=== PATIENT | male | born 1960 | race Caucasian/White ===

== ENCOUNTER 2020-02-26 15:10 | Emergency (ER) | payer OTHER ==
[~2020-02-26] VITALS: Ht 180.3 cm; Wt 102.1 kg
[2020-02-26 15:50] VITALS: BP 130/85
--- NOTE | 2020-02-26 16:11 | NUR ---
C/O FEVER, CHILLS, BODY ACHES X LAST NIGHT. PT AFEBRILE UPON TRIAGE. STATES PAIN 8/10 TO GENERALIZED BODY. PT IN TENT. NO SIGNS OF RESP DISTRESS. RR EVEN AND UNLABORED. VS STABLE. PT AMBULATORY PMH- DENIES
[2020-02-26 16:33] VITALS: BP 130/85
--- NOTE | 2020-02-26 16:33 | NUR ---
Patient discharged with v/s stable. Written and verbal after care instructions given and explained. Patient verbalized understanding. Ambulatory with steady gait. All questions addressed prior to discharge. Advised to follow up with PMD.
--- NOTE | 2020-02-26 16:33 | NUR ---
COVID-19 SWAB COLLECTED FROM PT
--- NOTE | 2020-02-29 16:26 | NUR ---
PT CAME IN FOR REPEAT OF COVID-19; COLLECTED AND HANDED TO LAB
== END 2020-02-26 16:33 | disposition home or self-care (01) ==
LOC: MED 15:10
DX: R50.9 Fever, unspecified (principal); M79.10 Myalgia, unspecified site; Z20.828 Contact with and (suspected) exposure to other viral communicable diseases
CPT/HCPCS: 99283; U0003